=== PATIENT | male | born 1990 | race Two or more races ===

== ENCOUNTER 2017-04-22 14:10 | Emergency (ER) | payer OTHER ==
[~2017-04-22] VITALS: Ht 170.2 cm; Wt 90.7 kg
[2017-04-22] MEDS ORDERED: Tetanus/Diptheria/Pertussis Vaccine 0.5ml Syr IM ONE (14:45)
[2017-04-22 14:56] LABS: BASOPHILS % (AUTO) 0.8 % (0.0-2.0); EOSINOPHILS % (AUTO) 0.3 % (0.0-3.0); HEMATOCRIT 42.6 % (42.0-52.0); HEMOGLOBIN 13.1 G/DL (14.2-18.0); LYMPHOCYTES % (AUTO) 16.4 % (20.0-45.0); MEAN CORPUSCULAR VOLUME 75 FL (80-99); MONOCYTES % (AUTO) 13.6 % (1.0-10.0); NEUTROPHILS % (AUTO) 68.9 % (45.0-75.0); PLATELET COUNT 286 K/UL (150-450); RED BLOOD COUNT 5.64 M/UL (4.70-6.10); RED CELL DISTRIBUTION WIDTH 16.3 % (11.6-14.8); WHITE BLOOD COUNT 7.5 K/UL (4.8-10.8)
--- NOTE | 2017-04-22 14:56 | Emergency Room Report ---
History of Present Illness General Chief Complaint: Laceration Source: Patient (Nic Cortes) Present Illness HPI 26-year-old male BIB ambulance and police to ER presents for bilateral wrist laceration Police reports patient was allegedly found on the stairs following injury by father in law who called EMS. Patient reports thoughts of hurting himself in the past; states after drinking alcohol "finally worked up the courage" to cut himself. Patient reports drinking alcohol prior to incident Patient denies drugs or smoking use. Patient denies history of depression and or anxiety treated medically Patient states he has not been seen by psychiatrist previously. Patient denies fever, SOB, chest pain, dizziness. (Nic Cortes) Allergies: Coded Allergies: No Known Allergies (Unverified , 04/22/17) Patient History Past Medical History: see triage record Social History: Reports: alcohol use, Denies: smoking, drug use Reviewed Nursing Documentation: PMH: Agreed, PSxH: Agreed (Nic Cortes) Nursing Documentation-PMH Past Medical History: No History, Except For (Nic Cortes) Review of Systems All Other Systems: negative except mentioned in HPI (Nic Cortes) Physical Exam Vital Signs Date Time Temp Pulse Resp B/P (MAP) Pulse Ox O2 Delivery O2 Flow Rate FiO2 04/22/17 14:03 98.4 100 16 133/83 98 Room Air Sp02 EP Interpretation: reviewed, normal General Appearance: no apparent distress, alert, GCS 15, non-toxic Head: normocephalic, atraumatic Eyes: bilateral eye normal inspection, bilateral eye PERRL ENT: hearing grossly normal, normal pharynx, no angioedema, normal voice Respiratory: chest non-tender, lungs clear, normal breath sounds, no respiratory distress, speaking full sentences Cardiovascular #1: regular rate, rhythm, no edema Cardiovascular #2: 2+ radial (R), 2+ radial (L) Musculoskeletal: back normal, digits/nails normal, gait/station normal, normal range of motion - wrist flexion/extension bilaterally; pt. able to make fist bilaterally, other - NVI bilateral hands, reports muscle weakness with wrist flexion secondary to pain Neurologic: alert, oriented x3 - person, day of week, president, responsive, sensory intact, normal gait Psychiatric: depressed affect Skin: normal color, no rash, warm/dry, well hydrated, laceration - left wrist: palmar side 4 cm laceration at distal wrist with tendon exposure; right wrist: palmar 2 cm laceration at distal wrist with not endon exposure (Nic Cortes) Procedures Laceration/Wound Repair Laceration/Wound Repair #1: Consent: Verbal Wound Location: upper extremity - left wrist Wound's Depth, Shape: linear, other - into tendon Wound Length (cm): 4 Wound Explored: contaminated Irrigated w/ Saline (ccs): 10 Betadine Prep?: Yes Anesthesia: 1% Lidocaine Volume Anesthetic (ccs): 2 Wound Debrided: extensive Wound Repaired With: sutures - runnning suture Suture Size/Type: 5:0, proline Number of Sutures: 5 Sterile Dressing Applied?: Yes Patient Tolerated: Well Complications: None Laceration/Wound Repair #2: Consent: Verbal Wound Location: upper extremity - right wrist Wound's Depth, Shape: superficial Wound Length (cm): 2 Wound Explored: contaminated Irrigated w/ Saline (ccs): 10 Betadine Prep?: Yes Anesthesia: 1% Lidocaine Volume Anesthetic (ccs): 1 Wound Debrided: extensive Wound Repaired With: sutures Suture Size/Type: 5:0, proline Number of Sutures: 2 Sterile Dressing Applied?: Yes Patient Tolerated: Well Complications: None (Nic Cortes) Medical Decision Making PA Attestation Dr. Morataya is my supervising Physician whom patient management has been discussed with. (Nic Cortes) Diagnostic Impression: Primary Impression: Flexor tendon laceration of left wrist with open wound Qualified Codes: S66.922A - Laceration of unspecified muscle, fascia and tendon at wrist and hand level, left hand, initial encounter; S61.502A - Unspecified open wound of left wrist, initial encounter Additional Impressions: Suicide gesture Qualified Codes: X83.8XXA - Intentional self-harm by other specified means, initial encounter Laceration of right wrist Qualified Codes: S61.511A - Laceration without foreign body of right wrist, initial encounter Alcohol intoxication Qualified Codes: F10.929 - Alcohol use, unspecified with intoxication, unspecified Methamphetamine abuse ER Course Pt presents to ED c/o bilateral wrist lacerations following suicide attempt. DDX considered but are not limited to depression, thoughts of suicide, drug toxicity, alcohol intoxication. Patient resting in bed, able to answer questions, and follow instructions during exam and treatment. VITAL SIGNS are WNL, patient is afebrile. ORDERS: Urine drug screen positive for methamphetamine. Serum alcohol levels elevated. ED INTERVENTIONS: TDap provided in ER, patient unsure of vaccination status. IV Ancef provided in ER. Due to depth of laceration with possible tendon involvement of left wrist, request was placed for hand surgeon consultation. After consultation with Dr. Morataya, primary wound closure wound be performed on bilateral wrists lacerations of patient patient would be able to be seen by hand specialist for further treatment. Bilateral wound closure performed, procedure note attached. Patient tolerated procedure well and was in no acute distress following procedure. Wound dressed and cleaned using sterile gauze. ER COURSE Following laceration repair, patient eloped from ER and was unable to be found. 911 was called and alerted to patients missing status. Labs Test 04/22/17 14:40 White Blood Count 7.5 K/UL (4.8-10.8) Red Blood Count 5.64 M/UL (4.70-6.10) Hemoglobin 13.1 G/DL (14.2-18.0) Hematocrit 42.6 % (42.0-52.0) Mean Corpuscular Volume 75 FL (80-99) Mean Corpuscular Hemoglobin 23.2 PG (27.0-31.0) Mean Corpuscular Hemoglobin Concent 30.8 G/DL (32.0-36.0) Red Cell Distribution Width 16.3 % (11.6-14.8) Platelet Count 286 K/UL (150-450) Mean Platelet Volume 6.3 FL (6.5-10.1) Neutrophils (%) (Auto) 68.9 % (45.0-75.0) Lymphocytes (%) (Auto) 16.4 % (20.0-45.0) Monocytes (%) (Auto) 13.6 % (1.0-10.0) Eosinophils (%) (Auto) 0.3 % (0.0-3.0) Basophils (%) (Auto) 0.8 % (0.0-2.0) Sodium Level 136 MMOL/L (136-145) Potassium Level 4.2 MMOL/L (3.5-5.1) Chloride Level 98 MMOL/L (98-107) Carbon Dioxide Level 27 MMOL/L (21-32) Anion Gap 11 mmol/L (5-15) Blood Urea Nitrogen 8 mg/dL (7-18) Creatinine 0.8 MG/DL (0.55-1.30) Estimat Glomerular Filtration Rate > 60 mL/min (>60) Glucose Level 86 MG/DL (74-106) Calcium Level 9.4 MG/DL (8.5-10.1) Total Bilirubin 0.6 MG/DL (0.2-1.0) Aspartate Amino Transf (AST/SGOT) 28 U/L (15-37) Alanine Aminotransferase (ALT/SGPT) 31 U/L (12-78) Alkaline Phosphatase 96 U/L (46-116) Total Protein 8.7 G/DL (6.4-8.2) Albumin 4.4 G/DL (3.4-5.0) Globulin 4.3 g/dL Albumin/Globulin Ratio 1.0 (1.0-2.7) Salicylates Level 0.7 ug/mL (2.8-20) Urine Opiates Screen Negative (NEGATIVE) Acetaminophen Level < 2 MCG/ML (10-30) Urine Barbiturates Screen Negative (NEGATIVE) Phencyclidine (PCP) Screen Negative (NEGATIVE) Urine Amphetamines Screen Positive (NEGATIVE) Urine Benzodiazepines Screen Negative (NEGATIVE) Urine Cocaine Screen Negative (NEGATIVE) Urine Marijuana (THC) Screen Negative (NEGATIVE) Serum Alcohol 213 mg/dL (Nic Cortes P.A.) ER Course I examined this patient. The patient had a median nerve injury in addition to his tendon lacerations. I discussed these with our hand surgeon. He advised to primarily close the wound and splint the hand. The patient left prior to splinting the hand. 911 was not notified however with revision of the [employer] was notified. (Please see subsequent medical record as the patient was returned.) (Dickson Morataya M.D.) Last Vital Signs Date Time Temp Pulse Resp B/P (MAP) Pulse Ox O2 Delivery O2 Flow Rate FiO2 04/22/17 14:03 98.4 100 16 133/83 98 Room Air (Nic Cortes P.A.) Last Vital Signs Date Time Temp Pulse Resp B/P (MAP) Pulse Ox O2 Delivery O2 Flow Rate FiO2 04/22/17 17:20 98.4 76 15 128/82 99 Room Air Status: improved (Dickson Morataya M.D.) Disposition: ELOPED Condition: Unknown Patient Instructions: Laceration Care, Adult Nic Cortes Apr 22, 2017 14:56 Dickson Morataya M.D. Apr 27, 2017 10:12
[2017-04-22] MEDS ORDERED: ceFAZolin 1gm/50ml Premix 50 ML IV ONE (15:00)
[2017-04-22 15:16] LABS: ANION GAP 11 mmol/L (5-15); BLOOD UREA NITROGEN 8 mg/dL (7-18); CALCIUM 9.4 MG/DL (8.5-10.1); CARBON DIOXIDE 27 MMOL/L (21-32); CHLORIDE 98 MMOL/L (98-107); CREATININE 0.8 MG/DL (0.55-1.30); POTASSIUM 4.2 MMOL/L (3.5-5.1); SODIUM 136 MMOL/L (136-145)
[2017-04-22 15:19] VITALS: BP 128/82
[2017-04-22 15:20] LABS: ALANINE AMINOTRANSFERASE 31 U/L (12-78); ALBUMIN 4.4 G/DL (3.4-5.0); ALKALINE PHOSPHATASE 96 U/L (46-116); ASPARTATE AMINO TRANSFERASE 28 U/L (15-37); BILIRUBIN,TOTAL 0.6 MG/DL (0.2-1.0)
[2017-04-22 16:35] VITALS: BP 121/79
[2017-04-22 17:20] VITALS: BP 128/82
[2017-04-23] MEDS ORDERED: KEFLEX500 MG ORAL (01:50)
== END 2017-04-22 17:20 | disposition left against medical advice (07) ==
LOC: EDBD 14:10 → EMR 14:43
DX: S61.512A Laceration without foreign body of left wrist, initial encounter (principal); S56.222A Laceration of other flexor muscle, fascia and tendon at forearm level, left arm, initial encounter; S61.511A Laceration without foreign body of right wrist, initial encounter; X78.9XXA Intentional self-harm by unspecified sharp object, initial encounter; Y92.89 Other specified places as the place of occurrence of the external cause; Z23 Encounter for immunization; Z72.89 Other problems related to lifestyle
CPT/HCPCS: 12001; 36415; 80053; 80307; 80329; 85025; 90471; 90715; 96374; 99284; J0690; Z7502

== ENCOUNTER 2017-04-22 19:49 | Emergency (ER) | payer OTHER ==
[~2017-04-22] VITALS: Ht 170.2 cm; Wt 90.7 kg
[2017-04-22 19:54] VITALS: BP 107/72
[2017-04-22] MEDS ORDERED: Bacitracin Oint UD TOPIC ONE (20:00)
[2017-04-22] MEDS ORDERED: Lidocaine 1% 10mg/ml/Epi 0.005mg/ml 30ml vial INJ ONE (20:00)
[2017-04-22 20:50] LABS: BASOPHILS % (AUTO) 0.9 % (0.0-2.0); EOSINOPHILS % (AUTO) 0.3 % (0.0-3.0); HEMATOCRIT 47.1 % (42.0-52.0); HEMOGLOBIN 14.3 G/DL (14.2-18.0); LYMPHOCYTES % (AUTO) 16.1 % (20.0-45.0); MEAN CORPUSCULAR VOLUME 75 FL (80-99); MONOCYTES % (AUTO) 9.6 % (1.0-10.0); NEUTROPHILS % (AUTO) 73.2 % (45.0-75.0); PLATELET COUNT 343 K/UL (150-450); RED BLOOD COUNT 6.25 M/UL (4.70-6.10); RED CELL DISTRIBUTION WIDTH 16.3 % (11.6-14.8); WHITE BLOOD COUNT 9.7 K/UL (4.8-10.8)
[2017-04-22 20:56] LABS: ANION GAP 11 mmol/L (5-15); BLOOD UREA NITROGEN 10 mg/dL (7-18); CALCIUM 9.9 MG/DL (8.5-10.1); CARBON DIOXIDE 28 MMOL/L (21-32); CHLORIDE 99 MMOL/L (98-107); CREATININE 1.1 MG/DL (0.55-1.30); POTASSIUM 4.4 MMOL/L (3.5-5.1); SODIUM 138 MMOL/L (136-145)
[2017-04-22 21:00] LABS: ALANINE AMINOTRANSFERASE 33 U/L (12-78); ALBUMIN 4.9 G/DL (3.4-5.0); ALBUMIN/GLOBULIN RATIO 1.1 (1.0-2.7); ALKALINE PHOSPHATASE 106 U/L (46-116); ASPARTATE AMINO TRANSFERASE 33 U/L (15-37); BILIRUBIN,TOTAL 0.7 MG/DL (0.2-1.0)
[2017-04-22 21:54] VITALS: BP 111/65
--- NOTE | 2017-04-22 22:24 | Emergency Room Report ---
History of Present Illness General Chief Complaint: Laceration Source: Patient (Dickson Morataya M.D.) Present Illness HPI Patient brought back from [facility] on 5150 placed by [employer]. This is the original note: 26-year-old male BIB ambulance and police to ER presents for bilateral wrist laceration Police reports patient was found on the stairs following injury by father in law who called EMS Patient reports thoughts of hurting himself in the past; states after drinking alcohol "finally worked up the courage" to cut himself. Patient reports drinking alcohol prior to incident Patient denies drugs or smoking use. Patient denies history of depression and or anxiety treated medically Patient states he has not been seen by psychiatrist previously. Patient denies fever, SOB, chest pain, dizziness. Patient had gone home with sister. Allegedly pulled out IV and also some sutures. Flexor tendons identified and Ancef had been given. Also tetanus given. Claims self medication with alcohol for depression. No recent psychiatric evaluation. c/o pain in his wrists: 6/10, sharp and aching, more with palpation and movement. Not radiating. States also has numbness L palm. (Dickson Morataya M.D.) Allergies: Coded Allergies: No Known Allergies (Unverified , 04/22/17) Patient History Past Medical History: see triage record Social History: Reports: alcohol use, drug use Social History Narrative lives with sister Reviewed Nursing Documentation: PMH: Agreed, PSxH: Agreed (Dickson Morataya M.D.) Nursing Documentation-PMH Past Medical History: No Stated History (Dickson Morataya M.D.) Review of Systems All Other Systems: negative except mentioned in HPI (Dickson Morataya M.D.) Physical Exam Vital Signs Date Time Temp Pulse Resp B/P (MAP) Pulse Ox O2 Delivery O2 Flow Rate FiO2 04/22/17 19:42 99.1 110 18 107/72 98 Room Air Sp02 EP Interpretation: reviewed, normal General Appearance: well appearing, no apparent distress, GCS 15 Head: normocephalic Eyes: bilateral eye PERRL, bilateral eye Scleral Injection ENT: moist mucus membranes Neck: supple Respiratory: lungs clear, normal breath sounds Cardiovascular #1: regular rate, rhythm Cardiovascular #2: 2+ radial (R), 2+ radial (L) - good capillary fill Gastrointestinal: normal inspection, normal bowel sounds, non tender, no mass, non-distended Musculoskeletal: back normal, gait/station normal, normal range of motion, other - some weakness L hand flexion (states due to pain) All digit flexor tendons intact (profoundus and superficialis). Neurologic: alert, motor strength/tone normal, DTRs symmetric, sensory deficit - median nerve L hand, oriented - X2 Psychiatric: depressed affect, other - poor insight Skin: warm/dry, laceration - bilateral wrists - L with flexor tendon lacerations (Dickson Morataya M.D.) Procedures Laceration/Wound Repair Laceration/Wound Repair : Consent: Verbal Wound Location: upper extremity Wound's Depth, Shape: linear Wound Length (cm): 5 Wound Explored: clean Betadine Prep?: Yes Anesthesia: Lidocaine w/ Epi Volume Anesthetic (ccs): 5 Wound Debrided: none Wound Repaired With: sutures Suture Size/Type: 4:0, nylon Layer Closure?: No Sterile Dressing Applied?: Yes Splint Applied?: Yes Sling Applied?: Yes Patient Tolerated: Well Complications: None Progress Palmaris longus severed. Deeper flexor (appears to be wrist flexor) partially lacerated (could also be flexor digitalis superficialis). Told sister and patient needed to see hand specialist before 1 week elapses. Irrigated and closed with running suture. Tolerated well. (Dickson Morataya M.D.) Medical Decision Making Diagnostic Impression: Primary Impression: Suicide gesture Qualified Codes: X83.8XXA - Intentional self-harm by other specified means, initial encounter Additional Impressions: Flexor tendon laceration of left wrist with open wound Qualified Codes: S66.922A - Laceration of unspecified muscle, fascia and tendon at wrist and hand level, left hand, initial encounter; S61.502A - Unspecified open wound of left wrist, initial encounter Laceration of right wrist Qualified Codes: S61.511D - Laceration without foreign body of right wrist, subsequent encounter Alcohol intoxication Qualified Codes: F10.929 - Alcohol use, unspecified with intoxication, unspecified Methamphetamine abuse ER Course Patient represents on 5150 after suicide attempt with bilateral wrist lacerations. See prior note. Allegedly pulled out some sutures L wrist. Needs re-suturing. Continued antibiotics. Denies SI at this time, but shows poor insight. Repeat labs as was un-observed after elopement. BA better. Tox still positive. Discussed in detail with Dr. Diaz. States can follow up in his office for the flexor tendons. Sutured skin. Antibiotics continued. Splint applied - excellent position with normal neurovasc as checked by me ( except for some median nerve deficit - same as prior). On 5150, needs evaluation in AM by psychiatrist or placement. Signed out to Dr. Santos. Last Vital Signs Date Time Temp Pulse Resp B/P (MAP) Pulse Ox O2 Delivery O2 Flow Rate FiO2 04/22/17 21:54 99.0 105 15 111/65 98 Room Air (Dickson Morataya M.D.) ER Course Please defer to the initial note for the history exam and presentation At this time patient was again reviewed by psychiatry I received a phone call Fredo Trinidad reports that she has spoken with the family including the mom and sister, at this time she is lifting the 5150 hold she feels the patient is stable for outpatient followup We are providing the patient with multiple outpatient health clinics Patient also had outpatient plastic surgery consultation and referral set from previous emergency physician Patient will continue on antibiotics at this time continues to deny any homicidal or active suicidal thoughts And in recommendations through psychiatry specialty patient is dispositioned for close outpatient followup , (DEBBY OLIVA D.O.) Rhythm Strip Diag. Results EP Interpretation: yes Rhythm: no PVC's, no ectopy, other - ST (Dickson Morataya M.D.) Last Vital Signs Date Time Temp Pulse Resp B/P (MAP) Pulse Ox O2 Delivery O2 Flow Rate FiO2 04/22/17 19:54 99.1 110 18 107/72 98 Room Air Status: improved (Dickson Morataya M.D.) Status: improved (DEBBY OLIVA D.O.) Disposition: HOME, SELF-CARE Condition: Improved Scripts Cephalexin* (KEFLEX*) 500 Mg Capsule 500 MG ORAL Q6H, #28 CAP 0 Refills Prov: Dickson Morataya M.D. 04/23/17 Referrals: [facility],REFERRING (PCP) Additional Instructions: Followup outpatient psychiatric facility provided next one to 2 days, also followup with plastic surgery as provided return to the ER with any concerns Dickson Morataya M.D. Apr 22, 2017 22:24 DEBBY OLIVA D.O. Apr 23, 2017 21:12
[2017-04-22 23:54] VITALS: BP 120/69
[2017-04-22] MEDS: Cephalexin 500mg cap ORAL SCH (23:54)
[2017-04-23] VITALS (7 sets, daily range): BP systolic 109–127; BP diastolic 61–75
--- NOTE | 2017-04-23 01:30 | Consultation ---
DATE OF CONSULTATION: 04/22/2017 PLASTIC SURGERY CONSULTATION SERVICE: Plastic and Reconstructive Surgery. CHIEF COMPLAINT: Bilateral wrist lacerations, deep, contaminated. HISTORY OF PRESENT ILLNESS: The patient is a 26-year-old gentleman, who is brought in by ambulance after cutting himself along his wrist bilaterally in a suicide attempt. He reports that he was drinking at home and cut himself in an attempt to take his life. He is alert and oriented x3 when brought in by ambulance. He was ambulatory, calm, and cooperative. PAST MEDICAL HISTORY: Unknown. PAST SURGICAL HISTORY: Unknown. MEDICATIONS: Unknown. MEDICATIONS GIVEN IN THE EMERGENCY ROOM: 1. Ancef IV. 2. Pertussis vaccine. ALLERGIES: Unknown. PHYSICAL EXAMINATION: VITAL SIGNS: Temperature 98.4, pulse 100, respiratory rate 16, blood pressure 133/83, and pulse oximetry 98% on room air. The patient left AMA prior to performing physical examination. LABORATORY DATA: White blood cell count 7.5, red blood cell count 5.64, and hemoglobin 13.1, hematocrit 42.6, and platelets 286,000. ASSESSMENT AND PLAN: In summary, the patient is a 26-year-old gentleman who presented to emergency room after suicide attempt with bilateral wrist lacerations. It is reported by the emergency room staff that on one side, he had transection to his palmaris longus tendon. It is recommended that the skin be suture closed and he will continue to be admitted and worked up for his psychiatric illness. It was advised that the palmaris longus tendon can be repaired at a later date and is not emergent. Most importantly, repair of his wrist should not delay his transition to a psychiatric facility in light of the suicide attempt. The patient will follow up in my office once discharged from the psychiatric facility. This patient was discussed with Dr. Morataya, emergency room staff. Jonna Diaz MD DR: DA JOB#: [id number] CC:
[2017-04-23] MEDS ORDERED: KEFLEX500 MG ORAL (01:50)
[2017-04-23] MEDS: Cephalexin 500mg cap ORAL SCH (06:53)
[2017-04-23] MEDS ORDERED: Cephalexin 500mg cap ORAL ONE (08:30)
[2017-04-23] MEDS ORDERED: Bacitracin Oint 15gm Tube TOPIC ONE (15:11)
[2017-04-23 19:14] LABS: APPEARANCE,URINE CLEAR; BILIRUBIN, URINE NEGATIVE (NEGATIVE); GLUCOSE, URINE (UA) NEGATIVE (NEGATIVE); KETONES,URINE NEGATIVE (NEGATIVE); LEUKOCYTE ESTERASE ,URINE 1+ (NEGATIVE); NITRITE,URINE NEGATIVE (NEGATIVE); PH,URINE 5 (4.5-8.0); PROTEIN,URINE NEGATIVE (NEGATIVE); UROBILINOGEN,URINE 4 MG/DL (0.0-1.0)
[2017-04-23 19:15] LABS: COLOR,URINE YELLOW
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
== END 2017-04-23 21:30 | disposition home or self-care (01) ==
LOC: EDBD 19:49 → EMR 20:19
DX: S61.512A Laceration without foreign body of left wrist, initial encounter (principal); S66.822A Laceration of other specified muscles, fascia and tendons at wrist and hand level, left hand, initial encounter; S61.511A Laceration without foreign body of right wrist, initial encounter; X78.9XXA Intentional self-harm by unspecified sharp object, initial encounter; Y92.89 Other specified places as the place of occurrence of the external cause; F10.129 Alcohol abuse with intoxication, unspecified; F15.10 Other stimulant abuse, uncomplicated
CPT/HCPCS: 12002; 36415; 80053; 80307; 80329; 81001; 85025; 99284; Z7502